=== PATIENT | male | born 1970 ===

== ENCOUNTER 2023-06-28 13:24 | Emergency (ER) | payer OTHER ==
[~2023-06-28] VITALS: Ht 185.4 cm; Wt 72.6 kg
[2023-06-28 13:36] VITALS: BP 157/98
[2023-06-28] MEDS ORDERED: STEGLATRO15 MG PO (13:40)
[2023-06-28] MEDS ORDERED: TRAZ50 PO (13:40)
[2023-06-28] MEDS ORDERED: DULOXETINE HCL60 M1 PO (13:40)
[2023-06-28] MEDS ORDERED: ALOGLIPTIN25 M7 PO (13:40)
[2023-06-28] MEDS ORDERED: ROSUVASTATIN CA20 MG PO (13:40)
[2023-06-28] MEDS ORDERED: ACTOS30 MG PO (13:41)
[2023-06-28] MEDS ORDERED: INSULIN GL100 UNIT/2 SQ (13:41)
[2023-06-28 15:22] LABS: BASOPHILS ABSOLUTE AUTO 0.08 K/mm3 (0.00-0.23); BASOPHILS PERCENT AUTO 1 % (0-2); EOSINOPHILS ABSOLUTE AUTO 0.52 K/mm3 (0.00-0.68); EOSINOPHILS PERCENT AUTO 6 % (0-6); Hematocrit 40.5 % (37.0-53.0); Hemoglobin 13.8 g/dL (13.5-17.5); IMMATURE GRAN ABSOLUTE AUTO 0.03 K/mm3 (0.00-0.10); IMMATURE GRAN PERCENT AUTO 0 % (0-1); LYMPHOCYTES ABSOLUTE AUTO 2.12 K/mm3 (0.84-5.20); LYMPHOCYTES PERCENT AUTO 25 % (21-46); MONOCYTES ABSOLUTE AUTO 0.59 K/mm3 (0.16-1.47); MONOCYTES PERCENT AUTO 7 % (4-13); Mean Corpuscular HGB 29.9 pg (26.0-34.0); Mean Corpuscular HGB Conc 34.1 g/dL (31.5-36.5); Mean Corpuscular Volume 88 fL (80-100); Mean Platelet Volume 9.8 fL (9.1-12.4); NEUTROPHILS ABSOLUTE AUTO 5.28 K/mm3 (1.96-9.15); NEUTROPHILS PERCENT AUTO 61 % (41-73); Platelet Count 282 K/mm3 (150-400); RDW Coefficient Variation 12.9 % (11.7-14.2); RDW Standard Deviation 40.7 fL (35.1-46.3); Red Blood Cell Count 4.62 M/mm3 (4.30-5.90); White Blood Cell Count 8.62 K/mm3 (4.00-11.30)
[2023-06-28 15:48] LABS: Albumin, Blood 3.8 g/dL (3.4-5.0); Albumin/Globulin Ratio 0.9 (0.8-1.8); Bilirubin, Direct 0.1 mg/dL (0.0-0.3); Bilirubin, Indirect 0.4 mg/dL (0.1-0.7); Bilirubin, Total 0.5 mg/dL (0.1-1.0); Bun/Creatinine Ratio 21.9 (12.0-20.0); Calcium, Blood 9.2 mg/dL (8.5-10.1); Creatinine, Blood 0.69 mg/dL (0.60-1.20); Globulin, Blood 4.4 g/dL (2.2-4.0); Potassium, Blood 3.9 mmol/L (3.5-5.5); Total Protein, Blood 8.2 g/dL (6.4-8.2)
[2023-06-28] MEDS ORDERED: ACET500 PO (16:36)
[2023-06-28] MEDS ORDERED: Ibuprofen600 MG PO (16:36)
[2023-06-28] MEDS ORDERED: CEPH500 PO (16:38)
== END 2023-06-28 16:50 | disposition home or self-care (01) ==
LOC: ER 13:24
PROVIDERS: Emergency Medicine
DX: S22.41XA Multiple fractures of ribs, right side, initial encounter for closed fracture (principal); L03.116 Cellulitis of left lower limb; W19.XXXA Unspecified fall, initial encounter; Z79.899 Other long term (current) drug therapy; Z79.4 Long term (current) use of insulin
CPT/HCPCS: 71101; 73590; 73660; 80048; 80076; 85025; 96365; 96366; 96375; 99283-25; J0696; J1885